=== PATIENT | female | born 1960 | race Caucasian/White ===

== ENCOUNTER 2023-06-21 07:24 | Outpatient (OUT) | payer OTHER, SELFPAY ==
[2023-06-21 07:51] LABS: Basophils Absolute Auto 0.1 10^3/uL (0.0-0.1); Basophils Percent Auto 0.7 % (0.2-2.0); Eosinophils Absolute Auto 0.2 10^3/uL (0.0-0.7); Hematocrit 38.3 % (36.0-48.0); Hemoglobin 12.7 g/dL (12.0-16.0); Immature Granulocytes Abs Auto 0.05 10^3/uL (0.00-0.03); Immature Granulocytes Pct Auto 0.7 % (0.0-0.5); Lymphocytes Absolute Auto 3.4 10^3/uL (1.2-3.8); Mean Corpuscular HGB Conc 33.2 g/dL (29.9-35.2); Mean Corpuscular Hemoglobin 30.2 pg (26.7-34.0); Mean Platelet Volume 9.8 fL (9.5-13.5); Monocytes Absolute Auto 0.5 10^3/uL (0.3-0.8); Monocytes Percent Auto 6.1 % (1.7-12.0); Neutrophils Absolute Auto 3.2 10^3/uL (1.4-6.5); Neutrophils Percent Auto 43.5 % (43.0-75.0); Platelet Count 280 10^3/uL (150-450); Red Blood Count 4.21 10^6/uL (4.20-5.40); Red Cell Distribution Width 13.3 % (11.0-15.0); White Blood Count 7.4 10^3/uL (4.0-11.0)
--- NOTE | 2023-06-21 08:00 | CA_ITS ---
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 DESCRIPTION: COMPLETE ECHOCARDIOGRAM Real-time transthoracic echocardiography with 2D, M-mode, spectral and color flow Doppler performed. QUALITY: Technical quality was adequate. 60 , 200#, BSA 1.96 m2, BP 120/68 LEFT VENTRICLE: Normal chamber size. Proximal septal hypertrophy (sigmoid septum). Normal systolic function. LV EF: Normal left ventricular ejection fraction, (>55%). DIASTOLIC: Normal diastolic function. ATRIAL SEPTUM: Visually appears intact. LEFT ATRIUM: Normal chamber size. RIGHT ATRIUM: Normal chamber size. RIGHT VENTRICLE: Normal chamber size. Normal right ventricular systolic function. TRICUSPID VALVE: Normal mobility and thickness. No stenosis with trivial regurgitation. No evidence of pulmonary hypertension. RVSP 23 mmHg MITRAL VALVE: Normal mobility and thickness. No evidence of mitral valve stenosis. There is no mitral annular calcification. Trivial mitral regurgitation. AORTIC VALVE: Normal trileaflet appearance. No visible sclerosis. Normal leaflet mobility. No evidence of aortic valve stenosis. No aortic regurgitation. AORTIC ROOT: Normal diameter and appearance. Ascending aorta is mildly dilated, measuring 3.8 cm. PULMONIC VALVE: Normal thickness and mobility. No stenosis. Trivial regurgitation. PERICARDIUM: No evidence of pericardial effusion. IVC: Collapses with inspirations. PLEURA: CONCLUSION: 1. Normal left ventricular size and systolic function. LVEF is 55 to 60%. 2. Normal right ventricular size and systolic function. 3. No significant valvular dysfunction. 4. Mildly dilated ascending aorta. 5. Normal right-sided pressures. Adult Echocardiography Procedure Report Left Ventricle LVEDD (3.7 - 5.6 cm): 3.60 cm LVESD (2.2 - 4.0 cm): 2.68 cm LVIVS thickness (0.6 - 1.2 cm): 1.26 cm LVPW thickness (0.5 - 1.0 cm): 0.97 cm e': 0.11 m/s E - e': 5.58 LVOT Max Gradient: 2.24 mm[Hg] LVOT Area (cm2): 0.75 m/s Peak Velocity (LVOT): 0.75 m/s Mean Velocity (LVOT): 0.45 m/s LVOT Diameter 2.20 cm Left Atrium LA Volume Index (2D A2C): 24.55 ml/m2 Left Atrium Systolic Dimension: 3.54 cm Mitral Valve MV E to A Ratio: 1.15 Mitral Valve A-Wave Peak Velocity: 0.55 m/s Mitral Valve E-Wave Peak Velocity: 0.63 m/s Right Ventricle Aorta AO Root Diam: 3.38 cm Ascending Ao Diam: 3.79 cm Aortic Valve AoV Area (Peak [place]): 2.20 cm2, 2.20 cm2 AoV Area (VTI): 2.61 cm2, 2.61 cm2 Peak Velocity(Antegrade Flow): 1.29 m/s Peak Gradient(Antegrade Flow): 6.68 mm[Hg] Mean Velocity(Antegrade Flow): 0.81 m/s Mean Gradient(Antegrade Flow): 3.06 mm[Hg] Velocity Time Integral: 25.01 cm Tricuspid Valve Peak Velocity (Regurgitant Flow): 2.24 m/s Pulmonic Valve Peak Velocity: 0.83 m/s Peak Gradient: 2.64 mm[Hg], 2.93 mm[Hg] Right Atrium Right Atrium Systolic Pressure: 39.40 ml, 39.40 ml Dictated by: Gold Tate M.D. on 06/21/2023 at 17:20 Approved by: Gold Tate M.D. on 06/21/2023 at 17:23
[2023-06-21 08:47] LABS: Alanine Aminotransferase 42 U/L (14-59); Albumin Globulin Ratio 1.1; Albumin Level 3.9 g/dL (3.4-5.0); Alkaline Phosphatase 60 U/L (46-116); Anion Gap 13.3; Aspartate Amino Transferase 23 U/L (15-37); BUN Creatinine Ratio 17.8; Bilirubin Total 0.8 mg/dL (0.2-1.0); Calcium 9.5 mg/dL (8.5-10.1); Carbon Dioxide 29.2 mmol/L (21.0-32.0); Chloride 103 mmol/L (98-107); Chol HDL Ratio 2.7; Cholesterol 145 mg/dL (<=200); Estimated GFR (African America >60 (>=60); Estimated GFR (Non-African Ame 56 (>=60); Free T3 2.85 pg/mL (2.18-3.98); Globulin 3.7 g/dL; Glucose 115 mg/dL (74-106); HDL Cholesterol 54 mg/dL (40-60); LDL Cholesterol Calculated 65.8 mg/dL; Potassium 4.5 mmol/L (3.5-5.1); Sodium 141 mmol/L (136-145); TSH W/ REFLEX FT4 2.772 uIU/mL (0.358-3.740); Total Protein 7.6 g/dL (6.4-8.2); Triglycerides 126 mg/dL (<=150); VLDL CHOLESTEROL 25.2 mg/dL
== END 2023-06-21 07:25 | disposition home or self-care (01) ==
LOC: LAB 07:24
PROVIDERS: PCP Family Medicine; Visit Provider Nurse Practitioner
DX: I11.0 Hypertensive heart disease with heart failure (principal); I50.22 Chronic systolic (congestive) heart failure; I43 Cardiomyopathy in diseases classified elsewhere; I25.10 Atherosclerotic heart disease of native coronary artery without angina pectoris; R53.83 Other fatigue
CPT/HCPCS: 36415; 80053; 80061; 83735; 83880; 84443; 84481; 85025; 93306

== ENCOUNTER 2024-09-09 07:29 | Outpatient (OUT) | payer OTHER, SELFPAY ==
--- OUTSIDE RECORDS SUMMARY | 2023-08-30 06:30 | XMS_ITS ---
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 porter Medications Medication SIG (Take, Route, Frequency, Duration) Notes Start Date End Date Status Vitamin D3 250 MCG (38980 UT) 1 capsule Orally Once a day Active Zinc 50 MG 1 tablet Orally Once a day Active Spironolactone 25 MG 1 tablet Orally Active Lutein 40 MG 1 capsule with a jose luis l Orally Once a day Active Norvasc 5 MG 1 tablet Orally Once a day Active Aspirin 81 MG 1 tablet Orally Once a day Active Calcium Citrate + D3 315-5 MG-MCG 1 tablet Orally Once a day Active Furosemide 20 MG 1/2 tablet in am Ora lly Once a day Active Glucosamine 750 MG as directed Orally Active Carvedilol 6.25 MG 1 tablet with food Orally Twice a day Active Entresto 24-26 MG 1 tablet Orally Twic e a day Active Albuterol Sulfate HFA 108 (90 Base) MCG/ACT 1 puff as needed Inhalation every 4 hrs Active Venlafaxine HCl ER 150 MG 1 capsule with food Orally Once a day for 90 days Active Social History Tobacco Use: Social History Observation Description Date Details (start date - stop date) Never Smoker NA - NA Tobacco Control (Standard) Question Answer Notes Tobacco use: Nonsmoker AUDIT-C (Standard) Question Answer Notes Did you have a drink contain ing alcohol in the past year? Yes How often did you have six o r more drinks on one occasion in the past year? Never (0 point) How many drinks did you have on a typical day when you were drinking in the past year? 1 or 2 drinks (0 point) How often did you have a dri nk containing alcohol in the past year? Monthly or less (1 point) Points 1 Interpretation Negative Problems Problem Type SNOMED Code ICD Code Onset Dates Problem Status W/U Status Risk Notes Problem Anxiety (64470607) Anxiety (F41.9) Active confirmed Vital Signs Weight 194.8 lbs 08/30/2023 Height 64 in 08/30/2023 Blood pressure systolic 114 mm Hg 08/30/19 24 Blood pressure diastolic 80 mm Hg 024 BMI 33.43 kg/m2 08/30/2023 Encounters Encounter Location Date Provider Diagnosis [facility] [address] [place] [facility] [place] [address] 08/30/2023 JANEE FORREST Anxiety F41.9 and Wellness examination Z00.00 Assessments Encounter Date Diagnosis (ICD Code) Assessment Notes Treatment Notes Treatment Clinical Notes Section Notes 08/30/2023 Anxiety (ICD-10 - F41.9) continue, mood good on this med 08/30/2023 Wellness examination (ICD-10 - Z00.00) ROS done exam done defers preventive testing cardiology fu one year, prn Plan Of Treatment Medication Medication Name Sig Start Date Stop Date Notes Venlafaxine HCl ER 150 MG 1 capsule with food Orally Once a day for 90 days Treatment Notes Assessment Notes Anxiety continue, mood good on this med Wellness examination ROS done exam done defers preventive testing cardiology fu one year, prn Next Appt Details Follow Up: 1 Year,prn, Reaso n: Progress Notes * Valerie BROTHERSOB:1960 (63 yo F)Acc No.[id number]:08/30/2023 New Patient Patient: Carlie GUERRERO Provider: Erin Forrest CNP :1960 A ge:63 Y S ex:Female Date:08/30/2023 Address:[address] [place] [address] Check In:10:25 AM ESTCheck O ut:11:02 AM EST Subjective: * Chief Complaints: * N P to estab, previous pcp dr porter * HPI: D epression Screening: entresto new med- SOB better on this 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 PHQ-2 (2015 Edition) L ittle interest or pleasure in doing things??Not at all F eeling down, depressed, or hopeless? 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 * ROS: G eneral/Constitutional: Fever d enies. H eadache d enies. W eight loss?denies. O phthalmologic: Discharge d enies. E ye Pain d enies. I tching and redness d enies. E NT: Nasal discharge d enies. N edmar congestion d enies.?Sore throat d enies. C ardiovascular: Chest tightness/ heavy pressure d enies. R apid heart rate d enies. S welling of extremities d enies. C hest pain d enies. ? R espiratory: Productive cough d enies. C hest pain d enies. C ough d enies. S hortness of breath d enies. W heezing d enies. ? G astrointestinal: Abdominal pain d enies. C onstipation d enies. D ecreased appetite d enies. D iarrhea d enies. N ausea d enies. V omiting?denies. G enitourinary: Urinary incontinence d enies. P ainful urination d enies. M usculoskeletal: Back pain d enies. N seb pain d enies. M uscle aches d enies. S kin: Rash d enies. S kin lesion(s) d enies. ? * Active Problem List F41.9 Anxiety Modified On:08/30/2023W/U Status:confirmed * Medical History: * Surgical History: h eart cath 11/23tonsils removed age 11 full hysterectomy 1999echo 06/17/21, 03/03/22, 07/27/23 * Hospitalization/Major Diagno stic Procedure: N o Hospitalization History. * Family History: F ather: . M other: alive, thyroid disease, diagnosed with Hypertension. B rother(s): alive. S ister(s): alive, diagnosed with Cancer. 1 brother(s) , 3 sister(s) . .? * Social History: T obacco Use: T obacco Control (Standard) T obacco use: N onsmoker D rug/Alcohol: A CLARISA-C (Standard) D id you have a drink containing alcohol in the past year? Y es H ow often did you have six or more drinks on one occasion in the past year? N ever (0 point) H ow many drinks did you have on a typical day when you were drinking in the past year? 1 or 2 drinks (0 point) H ow often did you have a drink containing alcohol in the past year? M onthly or less (1 point) P oints 1 I nterpretation N egative * Medications: T akingAlbuterol Sulfate HFA 108 (90 Base) MCG/ACT Aerosol Solution 1 puff as needed Inhalation every 4 hrs Aspirin 81 MG Tablet Delayed Release 1 tablet Orally Once a day Calcium Citrate + D3(Calcium Citrate-Vitamin D) 315-5 MG-MCG Tablet 1 tablet Orally Once a day Carvedilol 6.25 MG Tablet 1 tablet with food Orally Twice a day Entresto(Sacubitril-Valsartan) 24-26 MG Tablet 1 tablet Orally Twice a day Furosemide 20 MG Tablet 1/2 tablet in am Orally Once a day Glucosamine 750 MG Tablet as directed Orally Lutein 40 MG Capsule 1 capsule with a meal Orally Once a day Norvasc(amLODIPine Besylate) 5 MG Tablet 1 tablet Orally Once a day Spironolactone 25 MG Tablet 1 tablet Orally Venlafaxine HCl ER 150 MG Capsule Extended Release 24 Hour 1 capsule with food Orally Once a day Vitamin D3 250 MCG (31737 UT) Capsule 1 capsule Orally Once a day Zinc 50 MG Tablet 1 tablet Orally Once a day Medication List reviewed and reconciled with the patientTaking Albuterol Sulfate HFA 108 (90 Base) MCG/ACT Aerosol Solution 1 puff as needed Inhalation every 4 hrs Taking Aspirin 81 MG Tablet Delayed Release 1 tablet Orally Once a day Taking Calcium Citrate + D3(Calcium Citrate-Vitamin D) 315-5 MG-MCG Tablet 1 tablet Orally Once a day Taking Carvedilol 6.25 MG Tablet 1 tablet with food Orally Twice a day Taking Entresto(Sacubitril-Valsartan) 24-26 MG Tablet 1 tablet Orally Twice a day Taking Furosemide 20 MG Tablet 1/2 tablet in am Orally Once a day Taking Glucosamine 750 MG Tablet as directed Orally Taking Lutein 40 MG Capsule 1 capsule with a meal Orally Once a day Taking Norvasc(amLODIPine Besylate) 5 MG Tablet 1 tablet Orally Once a day Taking Spironolactone 25 MG Tablet 1 tablet Orally Taking Venlafaxine HCl ER 150 MG Capsule Extended Release 24 Hour 1 capsule with food Orally Once a day Taking Vitamin D3 250 MCG (86078 UT) Capsule 1 capsule Orally Once a day Taking Zinc 50 MG Tablet 1 tablet Orally Once a day Medication List reviewed and reconciled with the patient * Allergies: L martínezprJama[Allergies Verified] Objective: * Vitals: W t:194.8lbs, Ht: 64 in, BP:114/80mm Hg, BMI:33.43Index, Ht-cm: 162.56 cm, Wt-k.36 kg. * Examination: G eneral Examinations: GENERAL APPEARANCE: a lert and oriented, i n no acute distress. EYES: c onjunctiva normal, sclera non-icteric. EARS: e xternal auditory canals are patent. Tympanic membranes are pearly bryant and mobile. NOSE: n ormal external appearance. LUNGS: c lear to auscultation bilaterally. CARDIO: r egular rate and rhythm, S1, S2 normal, no murmurs, no edema. ABDOMEN: s oft, nontender. MUSCULOSKELETAL G ait and station normal. SKIN: w arm and dry. Assessment: * Assessment: 1. W ellness examination - Z00.00 (Primary) 2 . A nxiety - F41.9 Plan: * Treatment: 2. A nxiety Refill Venlafaxine HCl ER Capsule Extended Release 24 Hour, 150 MG, 1 capsule with food, Orally, Once a day, 90 days, 90 Capsule, Refills 3. Notes: continue, mood good on this med * Procedure Codes: * Preventive Medicine: Screenings/Counseling: B OR ACTION PLAN Above Normal BMI Follow-up D ietary management education, guidance, and counseling * Follow Up: 1 Year,prn * * Sign off status: Completed Visit Status: C HK (Check Out) true * Provider: Erin Forrest CNP Date: 0 08/30/2023 Generated for Kareem bautista/Sully/Delbertsmitting on: 0 09/09/2024 07:34 AM EDT History and Physical Notes * HPI (History of Present Illness) Category Sub-Category Detail Notes Category Not es Depression Screening PHQ-2 (2015 Edition) Little interest or pleasure in doing things?: Not at all Feeling down, depressed, or hopeless?: N ot at all Total Score: 0 Examination Category Sub-Category Detail Notes Category Not es General Examinations GENERAL APPEARANCE: alert a nd oriented, in no acute distress EYES: conjunctiva normal, sclera non-icteric EARS: external auditory ca nals are patent. Tympanic membranes are pearly bryant and mobile NOSE: normal external appe arance THROAT: CARDIO: regular rate and rhy thm, S1, S2 normal, no murmurs, no edema LUNGS: clear to auscultatio n bilaterally ABDOMEN: soft, nontender SKIN: warm and dry BACK: MUSCULOSKELETAL: Gait and station nor mal LYMPH NODES:
--- OUTSIDE RECORDS SUMMARY | 2023-08-30 07:04 | XMS_ITS ---
Author Organization The [facility] in [place] Address [address] [place] [address] Care Team Providers Care Fisher Hoop Net Name Role Phone Janee Forrest Primary Care Provider [phone] JANEE FORREST Unavailable [phone] REASON FOR VISIT Last cardio note Encounters Encounter Location Date Provider Diagnosis [facility] [address] [place] [address] 08/30/2023 JANEE FORRSET Plan Of Treatment No Information Progress Notes * Valerie BROTHERSOB:1960 (63 yo F)Acc No.[id number]:08/30/2023 Patient: Carlie GUERRERO :1960 A ge:63 Y S ex:Female Address:[address] [place] [address], [facility] [address] * true * Date: Generated for Kareem bautista/Sully/eTransmitting on: 0 09/09/2024 07:34 AM EDT
--- OUTSIDE RECORDS SUMMARY | 2023-10-15 06:33 | XMS_ITS ---
Author Organization The [facility] in [place] Address [address] [place] [address] Care Team Providers Care Environmental Technician Name Role Phone Janee Forrest Primary Care Provider Medications Medication SIG (Take, Route, Frequency, Duration) Notes Start Date End Date Status Venlafaxine HCl ER 150 MG 1 capsule with food Orally bid for 90 days Active Encounters Encounter Location Date Provider Diagnosis [facility] [address] [place] [address] 10/15/2023 Janee Forrest Anxiety F41.9 Assessments Encounter Date Diagnosis (ICD Code) Assessment Notes Treatment Notes Treatment Clinical Notes Section Notes 10/15/2023 Anxiety (ICD-10 - F41.9) Plan Of Treatment Medication Medication Name Sig Start Date Stop Date Notes Venlafaxine HCl ER 150 MG 1 capsule with food Orally bid for 90 days Progress Notes * Valerie BROTHERSOB:1960 (63 yo F)Acc No.[id number]:10/15/2023 Patient: Carlie GUERRERO :1960 A ge:63 Y S ex:Female Address:[address] [place] [address], [facility] [address] * Refills Refill Venlafaxine HCl ER Capsule Extended Release 24 Hour, 150 MG, Orally, 180 Capsule, 1 capsule with food, bid, 90 days, Refills=3 * true * Date: Generated for Printi ng/Faxing/eTransmitting on: 0 09/09/2024 07:34 AM EDT
--- OUTSIDE RECORDS SUMMARY | 2024-09-09 07:34 | XMS_ITS | Clinical Summary ---
Author Organization [facility] Address [address] [place] [address] Care Team Providers Care Physical Therapy Attendant Name Role Phone Unavailable Primary Care Provider Unavailabl e Allergies Active Allergy Reactions Criticality Noted Date Comments Cephalexin 10/09/2017 Yeast infection Medications venlafaxine (EFFEXOR XR) 150 MG extended release capsule Take 150 mg by mouth 2 times daily Active Multiple Vitamins-Mineral s (THERAPEUTIC MULTIVITAMIN-MIN ERALS) tablet Take 1 tablet by mouth daily Active acetaminophen (TYLENOL) 500 MG tablet Take 500 mg by mouth every 6 hours as needed for Pain Active Active Problems Problem Noted Date Diagnosed Date Nocturia 10/09/2017 Urinary incontinence 10/08/2017 Urinary frequency 10/08/2017 Family History Medical History Relation Name Comments Cancer Maternal Grandmother Hypertension Mother Relation Name Status Comments Maternal Grandmother Mother Social History Tobacco Use Types Packs/Day Years Used Date Smoking Tobacco: Never Comments Unknown Sex and Gender Information Value Date Recorded Sex Assigned at Not on file Legal Sex Female 2:27 PM EDT Gender Identity Not on file Sexual Orientation Not on file Plan of Treatment Not on file
--- OUTSIDE RECORDS SUMMARY | 2024-09-09 07:34 | XMS_ITS | Patient Health Record ---
Author Organization The [facility] in [place] Address [address] [place] [address] Care Team Providers Care Pocket And Pulley Machine Operator Name Role Phone Janee Forrest Primary Care Provider Allergies Allergen (clinical drug ingredient) Drug/Non Drug Allergy documented on EMR Reaction Allergy Type Onset Date Status Keflex Unknown Drug Allergy Active lisinopril Lisinopril Unknown Drug Allergy Activ e losartan Losartan Unknown Drug Allergy Active Reason For Referral No Information Medications Medication SIG (Take, Route, Frequency, Duration) Notes Start Date End Date Status Aspirin 81 MG 1 tablet Orally Once a day Active Calcium Citrate + D3 315-5 MG-MCG 1 tablet Orally Once a day Active Entresto 24-26 MG 1 tablet Orally Twic e a day Active Vitamin D3 250 MCG (91609 UT) 1 capsule Orally Once a day Active Albuterol Sulfate HFA 108 (90 Base) MCG/ACT 1 puff as needed Inhalation every 4 hrs Active Zinc 50 MG 1 tablet Orally [...] with food Orally Twice a day Active Venlafaxine HCl ER 150 MG 1 capsule with food Orally bid for 90 days Active Social History Tobacco [...] Problem Status W/U Status Risk Notes Problem Congestive heart failure (28608118) CHF (congestive heart failure) (I50.9) Active confirmed Problem Hypertension (23690013) HTN (hypertension ) (I10) Active confirmed Problem Anxiety (81470516) Anxiety (F41.9) Active confirmed Problem Coronary artery disease (32153595) Coronary artery disease (I25.10) Active confirmed Encounters Encounter Location Date Provider Diagnosis [facility] [address] [facility] [place] [address] 10/15/2023 Janee Adriane Anxiety F41.9 Assessments Encounter Date Diagnosis (ICD Code) Assessment Notes Treatment Notes Treatment Clinical Notes Section Notes 10/15/2023 Anxiety (ICD-10 - F41.9) Plan Of Treatment No Information Insurance Providers Payer Name Payer Address Payer Phone Subscriber Number Group Number Insured Name Patient Relationship to Insured Coverage Start Date Coverage End Date [employer] [facility] [facility] [address] ATTN CLAIMS [place], [place] [id number] Carlie Brothers Self - patient is the insured Medical (General) History Medical History History ICD Code anxiety tachycardia Surgical History Surgery Date(Month/Year) heart cath 11/23 tonsils removed age 11 full hysterectomy 1998 echo 06/17/21, 03/03/22, 07/27/23
--- OUTSIDE RECORDS SUMMARY | 2024-09-09 07:34 | XMS_ITS | Clinical Summary ---
Author Organization [facility] Address [address] [place] [address] Care Team Providers Care Care Management Associate Name Role Phone Feroz Haque MD Primary Care Provider [phone] Allergies Active Allergy Reactions Criticality Noted Date Comments Cephalexin Other 10/09/2017 Yeast infection Lisinopril Cough 05/18/2023 Medications aspirin 81 mg chewable tablet in the morning. Active venlafaxine XR (Effexor-XR) 150 mg 24 hr capsule venlafaxine ER 150 mg capsule,extended release 24 hr TAKE 1 CAPSULE BY MOUTH TWICE DAILY Active cholecalciferol, vitamin D3, 250 mcg (10,000 unit) capsule Take 1,000 Units by mouth in the morning. Active calcium citrate/vitamin D3 (CALCIUM CITRATE + D ORAL) Take 1 tablet by mouth in the morning and at bedtime. 400mg-12.5mcg Active zinc gluconate 50 mg tablet Take 1 tablet by mouth in the morning. Active melatonin 5 mg tablet Take 5 mg by mouth at bedtime. Active furosemide (Lasix) 20 mg tablet TAKE 1/2 (ONE-HALF) OF A TABLET BY MOUTH DAILY Active atorvastatin (Lipitor) 40 mg tablet Take 40 mg by mouth in the morning. 04/20/19 22 Active sacubitril-valsart an (Entresto) 24-26 mg tabletIndications: Chronic systolic heart failure (CMS/HCC),Coronary artery disease involving [place] coronary artery of [place] heart without angina pectoris Take 0.5 tablets by mouth in the morning and at bedtime. 90 tablet 3 05/18/19 24 Active spironolactone (Aldactone) 25 mg tabletIndications: Edema, unspecified type spironolactone 25 mg tablet TAKE 1 TABLET BY MOUTH EVERY DAY 90 tablet 3 07/20/19 24 Active amLODIPine (Norvasc) 5 mg tabletIndications: Benign hypertensive cardiomyopathy with heart failure (CMS/HCC) Take 1 tablet (5 mg) by mouth in the morning. 90 tablet 3 01/08/20 24 025 Active carvedilol (Coreg) 6.25 mg tabletIndications: Essential hypertension Take 1 tablet (6.25 mg) by mouth with breakfast and with evening meal. 180 tablet 3 06/06/19 25 026 Active Active Problems Problem Noted Date Diagnosed Date Acquired dilation of ascending aorta and aortic root 08/03/2023 Assessment & Plan (08/03/2023 10:09 AM EDT): Noted mild dilatation of aortic root and ascending aorta on current echo continue to monitor and of note her blood pressure is very well-controlled with current med regimen. 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 Continue current treatment regimen. Regular aerobic exercise. Continue current medications. Cardiac status will be reassessed in 6 months. Continue GDMT- ASA, lipitor, coreg Assessment & Plan (05/18/2023 2:58 PM EDT): Coronary artery disease is stable Continue GDMT- ASA, lipitor, coreg continue risk factor modifications- heart healthy diet, regular exercise as tolerated and continue all medications. Assessment & Plan (11/20/2022 2:04 PM EDT): Coronary artery disease is stable Continue GDMT- ASA, lipitor, coreg continue risk factor modifications- heart healthy diet, regular exercise as tolerated and continue all medications. Assessment & Plan (06/02/2022 12:07 PM EDT): Coronary artery disease is stable without concerning symptoms Continue ASA, lipitor and coreg Assessment & Plan (02/07/2022 9:35 AM EST): -Continue heart healthy diet, regular exercise- ASA, statin, coreg Dyspnea on exertion 11/24/2020 Assessment & Plan (11/20/2022 2:05 PM EDT): Currently stable, no acute concerns Assessment & Plan (06/02/2022 12:07 PM EDT): Stable Assessment & Plan (02/07/2022 9:34 AM EST): -continue aldactone, no swelling noted but will consider medication adjustment based on labs/echo -will need labs redrawn within to monitor BNP kidney function and electrolytes -will order to evaluate, she does have history of HFrEF but most recent echo shows preserved EF 60-65% Benign hypertensive cardiomyopathy with heart fa ilure 11/24/2020 Assessment & Plan (08/03/2023 10:07 AM EDT): B/P remains well controlled and labile at times but pt is tolerating meds well without concerning symptoms. At this time she does not want to increase dose of entresto because of SBP is typically around 100 Assessment & Plan (05/18/2023 3:01 PM EDT): HTN is stable Assessment & Plan (11/20/2022 2:05 PM EDT): HTN currently well controlled with amlodipine 5 mg, coreg 6.25 mg bid, aldactone 25 mg Assessment & Plan (06/02/2022 12:08 PM EDT): Diastolic remains elevated 85-90's therefore will add amlodipine 2.5 mg daily, she is to continue to monitor b/p at home- and call if b/p does not reduce to 130/80 or less. Assessment & Plan (02/07/2022 9:33 AM EST): -continue aldactone, coreg -controlled today Tachycardia 11/24/2020 Assessment & Plan (02/07/2022 8:55 AM EST): -on coreg, controlled Nocturia 10/09/2017 Urinary frequency 10/08/2017 Urinary incontinence 10/08/2017 Resolved Problems Problem Noted Date Diagnosed Date Resolved Date Chronic diastolic congestive heart failure 02/07/2022 02/07/2022 Assessment & Plan (02/07/2022 9:02 AM EST): -HFpEF -continue coreg, lisinopril, lasix, aldactone -will need repeat echo in 6 months -monitor weight daily, fluid restriction 1500 ml/day, low sodium diet Family History Medical History Relation Name Comments Heart attack Maternal Grandfather Relation Name Status Comments Maternal Grandfather Social History Tobacco Use Types Packs/Day Years Used Date Smoking Tobacco: Never Passive Smoke Exposure: Never Smokeless Tobacco: Never Tobacco Cessation:Counseling Given: Not Answered Alcohol Use Standard Drinks/Week Comments Yes 0 (1 standard drink = 0.6 oz pur e alcohol) occasional [place] Safety & Environment Answer Date Rec orded Fear of Current or Ex-Partner Not on file Emotionally Abused Not on file 04/26/2023 Physically Abused Not on file 04/26/2023 Sexually Abused Not on file 04/26/2023 Physically or Sexually Abused Not on file Comments Unknown Sex and Gender Information Value Date Recorded Sex Assigned at Not on file Legal Sex Female 12:39 AM EDT Gender Identity Not on file Sexual Orientation Not on file Last Filed Vital Signs Vital Sign Reading Time Taken Comments Blood Pressure 104/74 01/08/2024 9:01 AM EST Pulse 80 01/08/2024 9:01 AM EST Temperature - - Respiratory Rate 16 05/18/2023 9:25 AM EDT Oxygen Saturation 94% 01/08/2024 9:01 AM EST Inhaled Oxygen Concentration - - Weight 87.1 kg (192 lb) 01/08/2024 9:01 AM EST Height 160 cm (5' 3 ) 01/08/2024 9:01 AM EST Body Mass Index 34.01 01/08/2024 9:01 AM EST Plan of Treatment Health Maintenance Due Date Last Done Comments CT Colonography 1962 Colonoscopy 1962 Colorectal Cancer Screening 1960 FIT-DNA 1962 FIT 1962 FOBT 1960 Sigmoidoscopy 1962 Depression Screening 1974 Pneumococcal Vaccine: Pediat rics (0 to 5 Years) and At-Risk Patients (6 to 64 Years) (1 of 2 - PCV) 1981 Pap Smear 1983 Adult Tetanus 01/21/1984 Cervical Cancer Screening 01/21/1992 HPV/Cotest 01/21/1992 Mammogram 2002 Zoster Vaccines (1 of 2) 01/21/2012 COVID-19 Vaccine ( - 2023-2 5 season) 2023 Influenza Vaccine (#1) 2024 HIB Vaccines Aged Out No longer eligi ble based on patient's age to complete this topic HPV Vaccines Aged Out No longer eligi ble based on patient's age to complete this topic IPV Vaccines Aged Out No longer eligi ble based on patient's age to complete this topic Meningococcal B Vaccine Aged Out No l onger eligible based on patient's age to complete this topic Meningococcal Vaccine Aged Out No jacque radha eligible based on patient's age to complete this topic Rotavirus Vaccines Aged Out No longer eligible based on patient's age to complete this topic Insurance [facility] Care Teams Care Management Associate Relationship Specialty Start Date End Date Feroz Haque MD [address] [place] [address] PCP - General 01/08/24
[2024-09-09 07:55] LABS: Hematocrit 36.8 % (36.0-48.0); Hemoglobin 12.7 g/dL (12.0-16.0); Immature Granulocytes Abs Auto 0.07 10^3/uL (0.00-0.03); Immature Granulocytes Pct Auto 1.0 % (0.0-0.5); Lymphocytes Absolute Auto 3.4 10^3/uL (1.2-3.8); Mean Corpuscular HGB Conc 34.5 g/dL (29.9-35.2); Mean Corpuscular Hemoglobin 31.0 pg (26.7-34.0); Mean Corpuscular Volume 89.8 fL (81.0-99.0); Platelet Count 308 10^3/uL (150-450); Red Blood Count 4.10 10^6/uL (4.20-5.40); White Blood Count 7.3 10^3/uL (4.0-11.0)
--- NOTE | 2024-09-09 08:00 | CA_ITS ---
Patient Name: MELVA MERCHANT MR#: [id number] : 1960 Exam Date: 09/09/2024 Ordering Doctor: GISSEL LÓPEZ CNP ECHOCARDIOGRAM REPORT PROCEDURE: CA ECHO DOPPLER COMPLETE INDICATIONS: Heart failure with reduced ejection fraction COMPARISON: None. DESCRIPTION: COMPLETE ECHOCARDIOGRAM Real-time transthoracic echocardiography with 2D, M-mode, spectral and color flow Doppler performed. QUALITY: Technical quality was good. LEFT VENTRICLE: Normal chamber size. Proximal septal hypertrophy (sigmoid septum). Systolic function is normal. LV EF: Normal left ventricular ejection fraction, (55%). DIASTOLIC: Normal diastolic function. ATRIAL SEPTUM: Visually appears intact. LEFT ATRIUM: Normal chamber size. RIGHT ATRIUM: Normal chamber size. RIGHT VENTRICLE: Mild dilatation. Mildly reduced right ventricular systolic function. TRICUSPID VALVE: Normal mobility and thickness. No stenosis with trivial regurgitation. RVSP 30 mmHg MITRAL VALVE: Normal mobility and thickness. No evidence of mitral valve stenosis. There is no mitral annular calcification. No mitral regurgitation. AORTIC VALVE: Normal trileaflet appearance. Normal leaflet mobility. No evidence of aortic valve stenosis. Multifocal calcifications. Trivial aortic regurgitation. AORTIC ROOT: Normal diameter and appearance, measuring 3.4 cm. The ascending aorta is mildly dilated (4.0 cm). PULMONIC VALVE: Normal thickness and mobility. No stenosis. Trivial regurgitation. PERICARDIUM: No evidence of pericardial effusion. IVC: Collapses with inspiration. IVC is normal in size. PLEURA: CONCLUSION: 1. Normal left ventricular size and systolic function. Estimated LVEF is 55%. 2. Mildly dilated right ventricle with mildly reduced systolic function. 3. No significant valvular dysfunction. 4. Normal right-sided pressures. 5. Mildly dilated ascending aorta measuring 4.0 cm. Adult Echocardiography Procedure Report Left Ventricle LVEDD (3.7 - 5.6 cm): 3.88 cm LVESD (2.2 - 4.0 cm): 2.67 cm LVIVS thickness (0.6 - 1.2 cm): 1.18 cm LVPW thickness (0.5 - 1.0 cm): 0.86 cm e': 0.14 m/s E - e': 4.75 LVOT Max Gradient: 1.99 mm[Hg], 2.11 mm[Hg] LVOT Area (cm2): 0.73 m/s, 0.71 m/s Peak Velocity (LVOT): 0.73 m/s, 0.71 m/s Mean Velocity (LVOT): 0.48 m/s LVOT Diameter 2.35 cm Left Ventricular Ejection Fraction: 55 % Left Atrium LA Volume Index (2D A2C): 30.08 ml/m2 Left Atrium Systolic Dimension: 3.20 cm Mitral Valve MV E to A Ratio: 1.20 Mitral Valve A-Wave Peak Velocity: 0.54 m/s Mitral Valve E-Wave Peak Velocity: 0.65 m/s Right Ventricle Aorta AO Root Diam: 3.40 cm Ascending Ao Diam: 3.96 cm Aortic Valve AoV Area (Pe[place]): 2.27 cm2, 2.27 cm2, 2.20 cm2, 2.20 cm2, 1.90 cm2, 1.90 cm2, 1.96 cm2, 1.96 cm2 AoV Area (VTI): 2.43 cm2, 2.43 cm2 Peak Velocity(Antegrade Flow): 1.38 m/s, 1.60 m/s Peak Gradient(Antegrade Flow): 10.28 mm[Hg], 7.65 mm[Hg] Mean Velocity(Antegrade Flow): 0.84 m/s Mean Gradient(Antegrade Flow): 3.55 mm[Hg] Velocity Time Integral: 28.88 cm Tricuspid Valve Peak Velocity (Regurgitant Flow): 2.60 m/s Pulmonic Valve Peak Velocity: 0.92 m/s Peak Gradient: 3.37 mm[Hg], 3.37 mm[Hg] Right Atrium Right Atrium Systolic Pressure: 36.09 ml, 36.09 ml Dictated by: Gold Tate M.D. on 09/09/2024 at 17:05 Approved by: Gold Tate M.D. on 09/09/2024 at 17:10
[2024-09-09 09:55] LABS: Alanine Aminotransferase 23 U/L (14-59); Albumin Globulin Ratio 1.2; Albumin Level 3.9 g/dL (3.4-5.0); Alkaline Phosphatase 43 U/L (46-116); Anion Gap 16.5; Aspartate Amino Transferase 13 U/L (15-37); Blood Urea Nitrogen 15.0 mg/dL (7.0-18.0); Calcium 9.3 mg/dL (8.5-10.1); Carbon Dioxide 25.8 mmol/L (21.0-32.0); Chloride 104 mmol/L (98-107); Cholesterol 183 mg/dL (<=200); Estimated GFR (African America >60 (>=60 mL/min/1.73m^2); Estimated GFR (Non-African Ame >60 (>=60 mL/min/1.73m^2); Globulin 3.3 g/dL; Glucose 97 mg/dL (74-106); HDL Cholesterol 53 mg/dL (40-60); Potassium 4.3 mmol/L (3.5-5.1); Sodium 142 mmol/L (136-145); Total Protein 7.2 g/dL (6.4-8.2); Triglycerides 186 mg/dL (<=150); VLDL CHOLESTEROL 37.2 mg/dL
== END 2024-09-09 07:30 | disposition home or self-care (01) ==
LOC: LAB 07:32
PROVIDERS: PCP Family Medicine; Visit Provider Nurse Practitioner Family
DX: I50.22 Chronic systolic (congestive) heart failure (principal)
CPT/HCPCS: 36415; 80053; 80061; 85025; 93306

== ENCOUNTER 2025-01-13 06:39 | Outpatient (OUT) | payer OTHER, SELFPAY ==
--- OUTSIDE RECORDS SUMMARY | 2025-01-13 06:45 | XMS_ITS | Clinical Summary ---
Author Organization [facility] Address [address] [place] [address], [address] [place] [address] Care Team Providers Care Granulator Name Role Phone Unavailable Primary Care Provider Unavailabl e Allergies Active AllergyReactionsCriticalityNoted QzgpKmrxclqnPugqfmypzh49/07/2018 Yeast infection Medications MedicationSigDispense QuantityRefillsLast FilledStart DateEnd DateStatus venlafaxine (EFFEXOR XR) 150 MG extended release capsule Take 150 mg by mouth 2 times dailyActive Multiple Vitamins-Minerals (THERAPEUTIC MULTIVITAMIN-MINERALS) tablet Take 1 tablet by mouth dailyActive acetaminophen (TYLENOL) 500 MG tablet Take 500 mg by mouth every 6 hours as needed for PainActive Active Problems ProblemNoted DateDiagnosed QiakVnwotbko72/07/2018Urinary uqgvtbvajdhf39/06/2018 Urinary iegmqzkhk76/06/2018 Family History Medical HistoryRelationNameCommentsCancerMaternal GrandmotherHypertensionMother RelationNameStatusCommentsMaternal GrandmotherMother Social History Tobacco UseTypesPacks/DayYears UsedDateSmoking Tobacco: NeverComments UnknownSex and Gender InformationValueDate RecordedSex Assigned at BirthNot on fileLegal NxcHwcnge37/06/2018 2:27 PM EDTGender IdentityNot on fileSexual OrientationNot on file Plan of Treatment Not on file
--- OUTSIDE RECORDS SUMMARY | 2025-01-13 06:45 | XMS_ITS | Patient Health Record ---
Author Organization [facility] [place] Address [address] [place] [address] Care Team Providers Care Fruit Loader Machine Operator Name Role Phone Janee Forrest Primary Care Provider Allergies Allergen (clinical drug ingredient) Drug/Non Drug Allergy documented on EMR Reaction Allergy Type Onset Date Status KeflexUnknownDrug AllergyActivelisinoprilLisinoprilUnknownDrug AllergyActive losartanLosartanUnknownDrug AllergyActive Results Component Value Reference Range Notes CA echo doppler complete Reviewed date:09/09/2024 07:22:04 PM Interpretation: Performing Lab: Notes/Report: Source Facility: [place] [id number] Cardiology Report Signed Patient: MELVA BROTHERS MR#: [id number] : 1960 Acct:[id number] Age/Sex: 64 / F ADM Date: 09/09/24 Loc: LAB Attending Dr: GISSEL LÓPEZ APRN Ordering Physician: GISSEL LÓPEZ APRN Date of Service: 09/09/24 Procedure(s): CA echo doppler complete Accession Number(s): [id number] cc: Feroz Haque M.D.; GISSEL LÓPEZ APRN Patient Name: MELVA BROTHERS MR#: [id number] : 1960 Exam Date: 09/09/2024 Ordering Doctor: GISSEL LÓPEZ CNP ECHOCARDIOGRAM REPORT PROCEDURE: CA ECHO DOPPLER COMPLETE INDICATIONS: Heart failure with reduced ejection fraction COMPARISON: None. DESCRIPTION: COMPLETE ECHOCARDIOGRAM Real-time transthoracic echocardiography with 2D, M-mode, spectral and color flow Doppler performed. QUALITY: Technical quality was good. LEFT VENTRICLE: Normal chamber size. Proximal septal hypertrophy (sigmoid septum). Systolic function is normal. LV EF: Normal left ventricular ejection fraction, (55%). DIASTOLIC: Normal diastolic function. ATRIAL SEPTUM: Visually appears intact. LEFT ATRIUM: Normal chamber size. RIGHT ATRIUM: Normal chamber size. RIGHT VENTRICLE: Mild dilatation. Mildly reduced right ventricular systolic function. TRICUSPID VALVE: Normal mobility and thickness. No stenosis with trivial regurgitation. RVSP 30 mmHg MITRAL VALVE: Normal mobility and thickness. No evidence of mitral valve stenosis. There is no mitral annular calcification. No mitral regurgitation. AORTIC VALVE: Normal trileaflet appearance. Normal leaflet mobility. No evidence of aortic valve stenosis. Multifocal calcifications. Trivial aortic regurgitation. AORTIC ROOT: Normal diameter and appearance, measuring 3.4 cm. The ascending aorta is mildly dilated (4.0 cm). PULMONIC VALVE: Normal thickness and mobility. No stenosis. Trivial regurgitation. PERICARDIUM: No evidence of pericardial effusion. IVC: Collapses with inspiration. IVC is normal in size. PLEURA: CONCLUSION: 1. Normal left ventricular size and systolic function. Estimated LVEF is 55%. 2. Mildly dilated right ventricle with mildly reduced systolic function. 3. No significant valvular dysfunction. 4. Normal right-sided pressures. 5. Mildly dilated ascending aorta measuring 4.0 cm. Adult Echocardiography Procedure Report Left Ventricle LVEDD (3.7 - 5.6 cm): 3.88 cm LVESD (2.2 - 4.0 cm): 2.67 cm LVIVS thickness (0.6 - 1.2 cm): 1.18 cm LVPW thickness (0.5 - 1.0 cm): 0.86 cm e': 0.14 m/s E - e': 4.75 LVOT Max Gradient: 1.99 mm[Hg], 2.11 mm[Hg] LVOT Area (cm2): 0.73 m/s, 0.71 m/s Peak Velocity (LVOT): 0.73 m/s, 0.71 m/s Mean Velocity (LVOT): 0.48 m/s LVOT Diameter 2.35 cm Left Ventricular Ejection Fraction: 55 % Left Atrium LA Volume Index (2D A2C): 30.08 ml/m2 Left Atrium Systolic Dimension: 3.20 cm Mitral Valve MV E to A Ratio: 1.20 Mitral Valve A-Wave Peak Velocity: 0.54 m/s Mitral Valve E-Wave Peak Velocity: 0.65 m/s Right Ventricle Aorta AO Root Diam: 3.40 cm Ascending Ao Diam: 3.96 cm Aortic Valve AoV Area ([place]): 2.27 cm2, 2.27 cm2, 2.20 cm2, 2.20 cm2, 1.90 cm2, 1.90 cm2, 1.96 cm2, 1.96 cm2 AoV Area (VTI): 2.43 cm2, 2.43 cm2 Peak Velocity(Antegrade Flow): 1.38 m/s, 1.60 m/s Peak Gradient(Antegrade Flow): 10.28 mm[Hg], 7.65 mm[Hg] Mean Velocity(Antegrade Flow): 0.84 m/s Mean Gradient(Antegrade Flow): 3.55 mm[Hg] Velocity Time Integral: 28.88 cm Tricuspid Valve Peak Velocity (Regurgitant Flow): 2.60 m/s Pulmonic Valve Peak Velocity: 0.92 m/s Peak Gradient: 3.37 mm[Hg], 3.37 mm[Hg] Right Atrium Right Atrium Systolic Pressure: 36.09 ml, 36.09 ml Dictated by: Yoel Tate M.D. on 09/09/2024 at 17:05 Approved by: Yoel Tate M.D. on 09/09/2024 at 17:10 Dictated By: YOEL TATE Signed By: 09/09/241710 DD/ 09 TD/TT: Hvac Project Manager: PROF Ambriz(COMP METB) Reviewed date:09/09/2024 07:22:04 PM Interpretation: Performing Lab: Notes/Report: [facility] , Sodium 142 136-145 mmol/L Potassium4.33.5-5.1 mmol/VZjlnrtvk28378-275 mmol/LCarbon Aqvfnaf79.821.0-32.0 mmol/LAnion Gap16.7Cftkgru9118-588 mg/dLBlood Urea Hlacyogk35.07.0-18.0 mg/dL Creatinine0.680.55-1.02 mg/dLEstimated GFR ( Yael>60>=60 mL/min/1.73m 2Estimated GFR (Non- Ayala>60>=60 mL/min/1.73m 2BUN Creatinine Ratio22.1 Calcium9.38.5-10.1 mg/dLBilirubin Total0.40.2-1.0 mg/dLAspartate Amino Uiuewtxwbst1176-71 U/LAlanine Hdzneyagsclraxwj0662-08 U/LAlkaline Monmljnlmgf71 46-116 U/LTotal Protein7.26.4-8.2 g/dLAlbumin Level3.93.4-5.0 g/dLGlobulin3.3 Albumin Globulin Ratio1.2Performing Lab:see noteML - [facility] LB LIPID PROFILE Reviewed date:09/09/2024 07:22:04 PM Interpretation: Performing Lab: Notes/Report: [facility] ,Adxvlhkfwmbmd688<=150 mg/hCBpbabzmmwot411<=200 mg/dLHDL Guavlfxrpum0587-27 mg/dL > or =60 mg/dl - LOW CARDIOVASCULAR RISK <40 mg/dl - HIGH CARDIOVASCULAR RISK LDL Cholesterol Rhgqqfknap95.0 <100 mg/dl OPTIMAL 100-129 mg/dl NEAR OR ABOVE OPTIMAL 130-159 mg/dl BORDERLINE HIGH 160-189 mg/dl HIGH >190 mg/dl VERY HIGH VLDL QDZWCGKPMYI76.2Chol HDL Ratio3.5 3.3 - 4.4 LOW RISK 4.4 - 7.1 AVERAGE RISK 7.1 - 11.0 MODERATE RISK >11.0 HIGH RISK Performing Lab:see noteML - [facility] LBCBC AUTO DIFF Reviewed date:09/09/2024 07:22:04 PM Interpretation: Performing Lab: Notes/Report: [facility] ,White Blood Count7.34.0-11.0 10 3/uLRed Blood Count4.104.20-5.40 10 6/uL Dabyjukfwx88.712.0-16.0 g/rPTnxrjtmegu89.836.0-48.0 %Mean Corpuscular Jhlbqg46.8 81.0-99.0 fLMean Corpuscular Cjrbljbifb29.026.7-34.0 pgMean Corpuscular HGB Conc 34.529.9-35.2 g/dLRed Cell Distribution Width13.111.0-15.0 %Platelet Elhju929 150-450 10 3/uLMean Platelet Volume9.69.5-13.5 fLNeutrophils Percent Auto40.4 43.0-75.0 %Lymphocytes Percent Auto47.320.5-60.0 %Monocytes Percent Auto5.61.7- 12.0 %Eosinophils Percent Auto4.70.9-7.0 %Basophils Percent Auto1.00.2-2.0 % Immature Granulocytes Pct Auto1.00.0-0.5 %Neutrophils Absolute Auto2.91.4-6.5 10 3/uLLymphocytes Absolute Auto3.41.2-3.8 10 3/uLMonocytes Absolute Auto0.40.3- 0.8 10 3/uLEosinophils Absolute Auto0.30.0-0.7 10 3/uLBasophils Absolute Auto0.1 0.0-0.1 10 3/uLImmature Granulocytes Abs Auto0.070.00-0.03 10 3/uLPerforming Lab:see noteML - [facility] Reason For Referral No Information Medications Medication SIG (Take, Route, Frequency, Duration) Notes Start Date End Date Status Aspirin 81 MG 1 tablet Orally Once a day ActiveCalcium Citrate + D3 315-5 MG-MCG1 tablet Orally Once a dayActiveEntresto 24-26 MG1 tablet Orally Twice a dayActiveVitamin D3 250 MCG (99815 UT)1 capsule Orally Once a dayActiveAlbuterol Sulfate HFA 108 (90 Base) MCG/ACT1 puff as needed Inhalation every 4 hrsActiveZinc 50 MG1 tablet Orally Once a dayActive Spironolactone 25 MG1 tablet OrallyActiveLutein 40 MG1 capsule with a meal Orally Once a dayActiveNorvasc 5 MG1 tablet Orally Once a dayActiveFurosemide 20 MG1/2 tablet in am Orally Once a dayActiveGlucosamine 750 MGas directed Orally ActiveVenlafaxine HCl ER 150 MG1 capsule with food Orally bid; Duration: 90 days ActiveCarvedilol 6.25 MG1 tablet with food Orally Twice a dayActive Social History Tobacco Use: Social History Observation Description Date Details (start date - stop date) Never Smoker NA - NA Tobacco Control (Standard) Question Answer Notes Tobacco use: Nonsmoker AUDIT-C (Standard) Question Answer Notes Did you have a drink containing alcohol in the p ast year? Yes How often did you have six or more drinks on one occasion in the past year?Never (0 point)How many drinks did you have on a typical day when you were drinking in the past year?1 or 2 drinks (0 point)How often did you have a drink containing alcohol in the past year?Monthly or less (1 point)Points1 InterpretationNegative Problems Problem Type SNOMED Code ICD Code Onset Dates Problem Status W/U Status Risk Notes Problem Congestive heart failure (687315 07) CHF (congestive heart failure) (I50.9) ActiveconfirmedProblemHypertension (22782239)HTN (hypertension) (I10)Active confirmedProblemAnxiety (08709969)Anxiety (F41.9)ActiveconfirmedProblemCoronary artery disease (30012023)Coronary artery disease (I25.10)Activeconfirmed Encounters Encounter Location Date Provider Diagnosis [facility] [address] [place] [address] 11/10/2024 Janee Forrest Anxiety F41.9 Assessments Encounter Date Diagnosis (ICD Code) Assessment Notes Treatment Notes Treatment Clinical Notes Section Notes 11/10/2024 Anxiety (ICD-10 - F41.9) Plan Of Treatment No Information Insurance Providers Payer Name Payer Address Payer Phone Subscriber Number Group Number Insured Name Patient Relationship to Insured Coverage Start Date Coverage End Date [employer]HEL[employer] [address] ATTN CLAIMS [place], [place] [id number] [employer] - patient is the insured Medical (General) History Medical History History ICD Code anxiety tachycardiaSurgical History Surgery Date(Month/Year) heart cath 11/23 tonsils removed age 11 full [id number] 06/17/21, 03/03/22, 07/27/23
--- OUTSIDE RECORDS SUMMARY | 2025-01-13 06:45 | XMS_ITS | Clinical Summary ---
Author Organization [employer] tem Address [facility] [id number] [address] [place] [address] Care Team Providers Care Refining Equipment Operator Name Role Phone Hernandez Aguiar DO Primary Care Provider [phone] Social History Tobacco UseTypesPacks/DayYears UsedDateSmoking Tobacco: Never AssessedChildcare AnswerDate NsxpqibbXkdotinjkJcwzxos64/12/2019EmploymentAnswerDate Recorded HroysqzejxYheodln24/12/2019CommentsUnknownSex and Gender Information ValueDate RecordedSex Assigned at HbnftMxlspe17/23/2024 9:22 AM EDTLegal Sex Qpvevm8610/07/2014 5:56 PM EDTGender JobutimsZvthpu67/23/2024 9:22 AM EDTSexual OrientationNot on file Last Filed Vital Signs Vital SignReadingTime TakenCommentsBlood Tejovmqv658/9507 11:26 AM EDT Tuewy329709/27/2020 11:26 AM EDTTemperature--Respiratory Rate--Oxygen Saturation-- Inhaled Oxygen Concentration--Ajxqak27.3 kg (188 lb)09/27/2020 11:26 AM EDT Ptsmim015.6 cm (5' 6 )09/27/2020 11:26 AM EDTBody Mass Index30.3407 11:26 AM EDT Plan of Treatment Health MaintenanceDue DateLast DoneCommentsDepression Rzkmxxpgg16/18/1974Tobacco Fjhtocesi36/18/1974Adult BMI Rxqzfznjl96/18/1980DTaP,Tdap and Td Vaccines (1 - Tdap)1981Pap Smear1983Zoster (Shingles) Vaccine (1 of 2)01/21/2012 Influenza Kgbrgai4211/03/2024RSV ( or age 60+ yrs) (1 - 1-dose 75+ series) [employer] Not on file Insurance [address] [place] [address] Care Teams Team MemberRelationshipSpecialtyStart DateEnd Hernandez Aguiar DO PCP - GeneralFamily Medicine09/27/20
--- OUTSIDE RECORDS SUMMARY | 2025-01-13 06:45 | XMS_ITS | Clinical Summary ---
Author Organization [facility] Address [address] [place] [address] Care Team Providers Care Director Critical Care Name Role Phone Feroz Haque MD Primary Care Provider [phone] Allergies Active AllergyReactionsCriticalityNoted UtwqTjfjpycsNsapkatvmzNhemx85/07/2018 Yeast infection KnrejcrfhvJpghl98/15/2024 Medications MedicationSigDispense QuantityRefillsLast FilledStart DateEnd DateStatus aspirin 81 mg chewable tablet in the morning.Active venlafaxine XR (Effexor-XR) 150 mg 24 hr capsule venlafaxine ER 150 mg capsule,extended release 24 hr TAKE 1 CAPSULE BY MOUTH TWICE DAILYActive cholecalciferol, vitamin D3, 250 mcg (10,000 unit) capsule Take 1,000 Units by mouth in the morning.Active calcium citrate/vitamin D3 (CALCIUM CITRATE + D ORAL) Take 1 tablet by mouth in the morning and at bedtime. 400mg-12.5mcgActive zinc gluconate 50 mg tablet Take 1 tablet by mouth in the morning.Active melatonin 5 mg tablet Take 5 mg by mouth at bedtime.Active furosemide (Lasix) 20 mg tablet TAKE 1/2 (ONE-HALF) OF A TABLET BY MOUTH DAILYActive atorvastatin (Lipitor) 40 mg tablet Take 40 mg by mouth in the morning.04/20/2021ctive sacubitril-valsartan (Entresto) 24-26 mg tablet Indications:Chronic systolic heart failure (CMS/HCC),Coronary artery disease involving [place] coronary artery of [place] heart without angina pectorisTake 0.5 tablets by mouth in the morning and at bedtime. 90 tablet 4Active carvedilol (Coreg) 6.25 mg tablet Indications:Essential hypertensionTake 1 tablet (6.25 mg) by mouth with breakfast and with evening meal. 180 tablet 504/ctive spironolactone (Aldactone) 25 mg tablet Indications:Edema, unspecified typespironolactone 25 mg tablet TAKE 1 TABLET BY MOUTH EVERY DAY 90 tablet 5Active amLODIPine (Norvasc) 5 mg tablet Indications:Benign hypertensive cardiomyopathy with heart failure (CMS/HCC)Take 1 tablet (5 mg) by mouth in the morning. 90 tablet 507/ctive Active Problems ProblemNoted DateDiagnosed DateAcquired dilation of ascending aorta and aortic root08/03/2023 Assessment & Plan (08/03/2023 10:09 AM EDT): Noted mild dilatation of aortic root and ascending aorta on current echo continue to monitor and ofnote her blood pressure is very well-controlled with current med regimen. 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 bctfyclfs50/hronic fatigue, avworgimqom59/18/202309/Hypothyroidism, wjmrdngcexf96/18/2023 11/20/2022oronary artery disease involving [place] coronary artery of [place] heart without angina uthakwev47/06/2022 Assessment & Plan (08/03/2023 10:04 AM EDT): [...] regular exercise- ASA, statin, coreg Dyspnea on lvahqasv44/22/2021 Assessment & Plan (11/20/2022 2:05 PM EDT): [...] EF 60-65% Benign hypertensive cardiomyopathy with heart dozblsa5811/24/2020 Assessment & Plan (08/03/2023 10:07 AM EDT): [...] AM EST): -continue aldactone, coreg -controlled today Yutwxhibyni11/22/2021 Assessment & Plan (02/07/2022 8:55 AM EST): -on coreg, controlled Jbllaqqq53/07/2018Urinary dyovqxmdh78/06/2018Urinary /06/2018 Resolved Problems ProblemNoted DateDiagnosed DateResolved DateChronic diastolic congestive heart inewyxz70 Assessment & Plan (02/07/2022 9:02 AM EST): -HFpEF -continue coreg, lisinopril, lasix, aldactone -will need repeat echo in 6 months -monitor weight daily, fluid restriction 1500 ml/day, low sodium diet Family History Medical HistoryRelationNameCommentsHeart attackMaternal GrandfatherRelationName StatusCommentsMaternal Grandfather Social History Tobacco UseTypesPacks/DayYears UsedDateSmoking Tobacco: NeverPassive Smoke Exposure: NeverSmokeless Tobacco: Never Tobacco Cessation:Counseling Given: Not Answered Alcohol UseStandard Drinks/WeekCommentsYes0 (1 standard drink = 0.6 oz pure alcohol)occasionalUT Safety & EnvironmentAnswerDate RecordedFear of Current or Ex-PartnerNot on file04/26/2023Emotionally AbusedNot on file04/26/2023hysically AbusedNot on file04/26/2023Sexually AbusedNot on file04/26/2023hysically or Sexually AbusedNot on file04/26/2023CommentsUnknownSex and Gender InformationValueDate RecordedSex Assigned at BirthNot on fileLegal SexFemale 09/01/2021 12:39 AM EDTGender IdentityNot on fileSexual OrientationNot on file Last Filed Vital Signs Vital SignReadingTime TakenCommentsBlood Qmxgrgve037/7401/08/2024 9:01 AM EST Jacqc187901/08/2024 9:01 AM ESTTemperature--Respiratory Nmfa7391 9:25 AM EDTOxygen Kcvviexcuc41%01/08/2024 9:01 AM ESTInhaled Oxygen Concentration-- Updtdy18.1 kg (192 lb)01/08/2024 9:01 AM GRJAhyuga069 cm (5' 3 )01/08/2024 9:01 AM ESTBody Mass Index34.01103/09/2023 9:01 AM EST Plan of Treatment DateTypeDepartmentCare Team (Latest Contact Info)Gekutejwnet61/18/2025 9:20 AM ESTOffice Visit [facility] [address] [place] [address] Jannie Vaz, [employer] MANAGER [address] [place] [address] Health MaintenanceDue DateLast DoneCommentsCT Gndhprcciydn1962Colonoscopy 2Colorectal Cancer Zsecyjayn1962FIT-DNA1962FIT1962 FOBT0349Uitggriuvbpul1962Depression Ymcdnpiwc50/18/1974Pneumococcal Vaccine: Pediatrics (0 to 5 Years) and At-Risk Patients (6 to 64 Years) (1 of 2 - PCV)1981Pap Smear1983Adult Kuqmflk0501/21/1984Cervical Cancer Ioimxflkz06/18/1992HPV/Ipsnhb4501/21/19923847Wswmmomfx80/18/2002Zoster Vaccines (1 of 2)01/21/2012COVID-19 Vaccine (1 - season)2024Influenza Vaccine (#1)2024HIB VaccinesAged OutNo longer eligible based on patient's age to complete this topicHPV VaccinesAged OutNo longer eligible based on patient's age to complete this topicIPV VaccinesAged OutNo longer eligible based on patient's age to complete this topicMeningococcal B VaccineAged OutNo longer eligible based on patient's age to complete this topicMeningococcal VaccineAged OutNo longer eligible based on patient's age to complete this topicRotavirus Vaccines Aged OutNo longer eligible based on patient's age to complete this topic Insurance Care Teams Team MemberRelationshipSpecialtyStart DateEnd Feroz Haque MD [address] [facility] [address] [address] PCP - Fagvrwe80/5/24
--- OUTSIDE RECORDS SUMMARY | 2025-01-13 06:45 | XMS_ITS | Continuity of Care Document ---
Author [facility] Address [address] [place] [address] Problems Unknown Problems Results Test Result Date/Time Value / Unit Interp. Refere nce Range SARS-CoV-2 (COVID-19), RT-PC R/TMA[[id number]] Collected: 11/30/2020 03:10 PM Specimen Received: 12/01/2020 05:16 PM Source: [facility] SARS-CoV-2 INTERPRETATION [[id number]] 12/02/2020 01:19 A M Negative See LbkbMGRB-KuH-2 RNA NOT DETECTEDNegative results do not preclude SARS-CoV-2 infection and should notbe used as the sole basis for patient management decisions. Negativeresults must be combined with clinical observations, patient history,and epidemiological information. Optimum specimen types and timingfor peak viral levels during infections caused by SARS-CoV-2 have notbeen determined. Collection of multiple specimens or types ofspecimens may be necessary to detect virus. Improper specimencollectionand handling, sequence variability under primers/probes,or organism present below the limit of detec tion may lead to falsenegative results. Positive and negative predictive values oftesting are highly dependent on prevalence. False negative testresults are more likely when prevalence is high.SOURCE [[id number]]12/02/2020 01:19 AM NASOPHARYNGEALNote: Methodology is Tony Delta Real-Time RT-PCR. The expected result or reference range is NEGATIVE (Not Detected). For more information regarding COVID-19 testing to include clinicalinformation, methodology detail, intended use, FDA authorization andrecommended fact sheets for patients or healthcare providers, see [employer] Announcement: SARS-CoV-2 (COVID-19) by NAAT at URL below (note,fact sheets are provided by method given in report:[email or web address].com/clinicians/client-communications/ Alternatively, see downloadable PDF fact sheet at:[email or web address]://[email or web address]ra/[email or web address]-[email or web address]-PCR Allergies, adverse reactions, alerts No known allergies and adverse reactions Medications No administered medications reported Vital Signs No vital signs reported Social History No smoking Hx information available
[2025-01-13 07:25] LABS: Alanine Aminotransferase 28 U/L (14-59); Albumin Globulin Ratio 1.2; Albumin Level 4.0 g/dL (3.4-5.0); Alkaline Phosphatase 47 U/L (46-116); Anion Gap 13.4; Aspartate Amino Transferase 15 U/L (15-37); Blood Urea Nitrogen 10.0 mg/dL (7.0-18.0); Calcium 9.2 mg/dL (8.5-10.1); Carbon Dioxide 29.8 mmol/L (21.0-32.0); Chloride 102 mmol/L (98-107); Cholesterol 131 mg/dL (<=200); Estimated GFR (African America >60 (>=60 mL/min/1.73m^2); Estimated GFR (Non-African Ame >60 (>=60 mL/min/1.73m^2); Globulin 3.4 g/dL; Glucose 107 mg/dL (74-106); HDL Cholesterol 59 mg/dL (40-60); Potassium 4.2 mmol/L (3.5-5.1); Sodium 141 mmol/L (136-145); Total Protein 7.4 g/dL (6.4-8.2); Triglycerides 104 mg/dL (<=150); VLDL CHOLESTEROL 20.8 mg/dL
== END 2025-01-13 06:40 | disposition home or self-care (01) ==
LOC: LAB 06:42
PROVIDERS: PCP Nurse Practitioner Family; Visit Provider Nurse Practitioner Family
DX: E78.2 Mixed hyperlipidemia (principal)
CPT/HCPCS: 36415; 80053; 80061; 82306